=== PATIENT | female | born 1945 | race Caucasian/White ===

== ENCOUNTER → 2018-04-20 | Outpatient (CLI) | payer OTHER | END | disposition home or self-care (01) | LOC: RAH 11:16 | PROVIDERS: ATTEND Internal Medicine | DX: Z12.31 Encounter for screening mammogram for malignant neoplasm of breast (principal) | CPT/HCPCS: 77067 ==

== ENCOUNTER → 2019-05-22 | Outpatient (CLI) | payer OTHER | END | disposition home or self-care (01) | LOC: RAH 10:29 | PROVIDERS: ATTEND Internal Medicine | DX: Z12.31 Encounter for screening mammogram for malignant neoplasm of breast (principal) | CPT/HCPCS: 77067 ==

== ENCOUNTER → 2019-10-09 | Outpatient (CLI) | payer OTHER | END | disposition home or self-care (01) | LOC: RAH 09:34 | PROVIDERS: ATTEND Internal Medicine | DX: R22.31 Localized swelling, mass and lump, right upper limb (principal) | CPT/HCPCS: 76882 ==

== ENCOUNTER → 2020-10-14 | Outpatient (CLI) | payer OTHER | END | disposition home or self-care (01) | LOC: RAH 10:16 | PROVIDERS: ATTEND Internal Medicine | DX: Z12.31 Encounter for screening mammogram for malignant neoplasm of breast (principal); N64.89 Other specified disorders of breast | CPT/HCPCS: 77067 ==

== ENCOUNTER → 2023-09-20 | Outpatient (CLI) | payer OTHER | END | disposition home or self-care (01) | LOC: OIH 13:23 | PROVIDERS: ATTEND Internal Medicine Cardiovascular Disease | DX: Z13.6 Encounter for screening for cardiovascular disorders (principal); I10 Essential (primary) hypertension | CPT/HCPCS: 75571 ==

== ENCOUNTER → 2024-04-10 | Outpatient (CLI) | payer MEDICARE | END | disposition home or self-care (01) | LOC: RAH 10:00 | PROVIDERS: ATTEND Internal Medicine | DX: Z12.31 Encounter for screening mammogram for malignant neoplasm of breast (principal); R23.4 Changes in skin texture; N64.59 Other signs and symptoms in breast | CPT/HCPCS: 77067 ==

== ENCOUNTER → 2024-04-18 | Outpatient (CLI) | payer MEDICARE | END | disposition home or self-care (01) | LOC: RAH 09:53 | PROVIDERS: ATTEND Internal Medicine | DX: R92.8 Other abnormal and inconclusive findings on diagnostic imaging of breast (principal); N64.59 Other signs and symptoms in breast | CPT/HCPCS: 76641 ==

== ENCOUNTER → 2024-06-05 | Outpatient (CLI) | payer MEDICARE ==
[~2024-06-05] MED LIST: GADOTERATE MEGLUMINE 10 MMOL/20 ML VIAL IV ONE
== END | disposition home or self-care (01) ==
LOC: RAH 13:44
PROVIDERS: ATTEND Internal Medicine
DX: N60.01 Solitary cyst of right breast (principal); R92.8 Other abnormal and inconclusive findings on diagnostic imaging of breast; N64.4 Mastodynia; N64.59 Other signs and symptoms in breast
CPT/HCPCS: 77049; A9575

== ENCOUNTER → 2025-05-23 | Outpatient (CLI) | payer MEDICARE ==
--- NOTE | 2025-05-24 07:01 | HMCIMG ---
EXAMINATION: SPECTRAL DOPPLER ULTRASOUND EXAMINATION OF THE LEFT LOWER EXTREMITY VEINS. CLINICAL HISTORY: Left calf pain and localized edema. COMPARISON: None provided. TECHNIQUE: Real-time ultrasound scan of the veins of the left lower extremity with color Doppler flow, spectral waveform analysis and compression. FINDINGS: DEEP VEINS: The common femoral, superficial femoral, and popliteal veins are echolucent and compressible. There is normal color Doppler flow throughout. The visualized calf veins appear patent. SUPERFICIAL VEINS: The greater saphenous vein is patent and compressible. SOFT TISSUES: No popliteal fossa cyst. There is fat stranding around the greater saphenous vein in the calf region, area of pain. IMPRESSION: No deep venous thrombosis evident in the left lower extremity. No superficial thrombophlebitis in the left lower extremity. Fat stranding around the greater saphenous vein, of concern for cellulitis. /[place]
== END | disposition home or self-care (01) ==
LOC: RAH 13:20
PROVIDERS: ATTEND Internal Medicine
DX: M79.662 Pain in left lower leg (principal); R60.0 Localized edema
CPT/HCPCS: 93971